=== PATIENT | male | born 1960 | race Caucasian/White ===

== ENCOUNTER → 2017-04-13 | Outpatient (CLI) | payer MEDICARE ==
[~2017-04-13] MED LIST: AVAPRO300 MG PO; LIPITOR40 MG PO; NAPROXEN500 MG PO
== END | disposition home or self-care (01) ==
LOC: CDC 11:43
DX: Z01.810 Encounter for preprocedural cardiovascular examination (principal)
CPT/HCPCS: 93000

== ENCOUNTER 2017-06-19 20:51 | Inpatient (IN) | payer MEDICARE ==
[~2017-06-19] VITALS: Ht 188 cm; Wt 156.4 kg
[~2017-06-19 20:51] MED LIST changes: +LAMISIL AT12 GM TP
[2017-06-20 11:47] VITALS: BP 113/67
[2017-06-20 19:40] VITALS: BP 154/84
[2017-06-20 23:47] VITALS: BP 134/75
[2017-06-21 03:59] VITALS: BP 130/67
[2017-06-21 06:22] LABS: MCH 31.5 PG (29.0-34.0); MCHC 33.3 G/DL (30.0-36.0); MCV 94.5 FL (86-99); PLATELET COUNT 208 K/uL (156-360); RBC DIS.WIDTH-CV 12.7 % (11.8-14.6); RBC DIS.WIDTH-SD 44.2 % (39-53); RED BLOOD COUNT 4.76 M/uL (4.00-5.50); WHITE BLOOD COUNT 7.3 K/uL (4.1-10.2)
[2017-06-21 06:45] LABS: CHLORIDE 100 MEQ/L (99-109); CREATININE 0.8 MG/DL (0.6-1.3); GFR ESTIMATE (CALCULATED) > 59 mL/min/ (58.99-99999); GLUCOSE 137 mg/dL (70-99); MAGNESIUM 1.7 mg/dl (1.3-2.7); PHOSPHORUS 2.5 mg/dL (2.5-4.9); POTASSIUM 4.5 MEQ/L (3.7-5.4); SODIUM 136 MEQ/L (136-147); UREA NITROGEN (BUN) 13 mg/dL (9-23)
== END 2017-06-21 09:57 | disposition home or self-care (01) | DRG 621 ==
LOC: ENRESERV 20:51 → 2SOUTH 06-20 10:58 → ENRESERV 06-20 17:15 → 2EASTP 06-20 17:43 → ENRESERV 06-21 02:11 → 2EAST 06-21 02:23
PROVIDERS: Surgery
PROC: 0DB64Z3 Excision of Stomach, Percutaneous Endoscopic Approach, Vertical (ICD-10-PCS; principal; 2017-06-21)
DX: E66.01 Morbid (severe) obesity due to excess calories (principal); I10 Essential (primary) hypertension; E78.5 Hyperlipidemia, unspecified; G47.30 Sleep apnea, unspecified
CPT/HCPCS: 80048; 82948; 83735; 84100; 85027; 94799; C9113; J0690; J1100; J1170; J1644; J1650; J2250; J2405; J3010; J3480; J7120; S0020